=== PATIENT | male | born 1975 | race Caucasian/White ===

== ENCOUNTER 2021-02-04 06:24 | Inpatient (IN) | payer OTHER, MEDICAID ==
[~2021-02-04] VITALS: Ht 165.1 cm; Wt 81.0 kg
--- NOTE | 2021-02-04 06:47 | NUR ---
PT PRESENTS TO ED STATING EVERYTHING IS HURTING. EKG DONE IN TRIAGE, PT PLACED ON CONTINUOUS MONITORING. PT IN GOWN AND RESTING ON GURNEY.
[2021-02-04 07:33] LABS: MEAN CORPUSCULAR HEMOGLOBIN 31.8 pg (27.5-34.5); MEAN CORPUSCULAR HGB CONC 34.2 g/dL (33.2-36.2); MEAN PLATELET VOLUME 10.2 fL (7.4-10.4); PLATELET COUNT 123 x10^3/uL (130-400); RED BLOOD COUNT 5.96 x10^6/uL (4.38-5.82)
--- NOTE | 2021-02-04 07:35 | NUR ---
CODE BLUE BUTTON ACTIVATED BY [employer] WHO REPORTED THAT PT REPORTED BEING DIZZY AND THEN HAD SEIZURE LIKE ACTIVITY. PT PALE, COOL, DIAPHORETIC ON RN ARRIVAL, A&O X 4. PT STATES HE WAS DIZZY. PT SPO2 86% RA AND WAS PLACED ON O2. DR ESTRADA BEDSIDE TO ASSESS. PIV LEFT AC.
[2021-02-04 07:43] LABS: ALANINE AMINOTRANSFERASE 40 U/L (12-78); ALBUMIN 2.5 g/dL (3.4-5.0); ANION GAP 11 mmol/L (5-15); CALCIUM 8.5 mg/dL (8.5-10.1); CHLORIDE 95 mmol/L (98-107); CREATININE 1.24 mg/dL (0.7-1.3)
[2021-02-04 07:48] LABS: ALKALINE PHOSPHATASE 27 U/L (45-117); BILIRUBIN,TOTAL 0.5 mg/dL (0.2-1.0)
[2021-02-04 07:50] LABS: TROPONIN I 0.277 ng/mL (0.000-0.045)
[2021-02-04 07:59] LABS: BAND#(MANUAL) 0.73 x10^3/uL; BANDS%(MANUAL) 10 % (0-7); LYMPH#(MANUAL) 0.44 x10^3/uL (1-3.4); LYMPHS% (MANUAL) 6 % (22-44); MONOS#(MANUAL) 0.15 x10^3/uL (0.3-2.7); MONOS% (MANUAL) 2 % (2-9); SEG#(MANUAL) 5.99 x10^3/uL (1.8-6.8); SEGS% (MANUAL) 82 % (42-75)
[2021-02-04 08:00] LABS: <PLATELET ESTIMATE> DECREASED; <PLT MORPHOLOGY> NORMAL PLT MORPH; <RBC MORPHOLOGY> NORMAL
[2021-02-04] MEDS ORDERED: DOXYCYCLINE 100MG TABLET PO ONE (08:00)
[2021-02-04] MEDS ORDERED: SODIUM CHLORIDE 0.9% 1,000ML IVBOLUS ONE (08:00)
[2021-02-04] MEDS ORDERED: CEFTRIAXONE 1,000 MG in DEXTROSE 5% 50 ML IVPB ONE (08:00)
[2021-02-04] MEDS ORDERED: ASPIRIN 81 MG TABLET CHEW PO ONE (08:00)
[2021-02-04] MEDS ORDERED: SODIUM CHLORIDE FLUSH 10ML SYR IVF ONE (08:00)
[2021-02-04] MEDS ORDERED: MORPHINE SULFATE 4 MG/ML, 1ML ONE (08:24)
[2021-02-04] MEDS ORDERED: ONDANSETRON 2MG/ML, 2ML ONE (08:24)
[2021-02-04] MEDS ORDERED: ONDANSETRON 2MG/ML, 2ML IVPush ONE (08:30)
[2021-02-04] MEDS ORDERED: MORPHINE SULFATE 4 MG/ML, 1ML IVPush ONE (08:30)
[2021-02-04] MEDS ORDERED: ASPIRIN 81 MG TABLET CHEW ONE (08:38)
[2021-02-04] MEDS ORDERED: DOXYCYCLINE 100MG TABLET ONE (09:45)
[2021-02-04 10:02] LABS: D-DIMER (DIC) 0.53 ug/mlFEU (0.00-0.52); PROTIME 10.6 Seconds (9.6-11.5)
[2021-02-04] MEDS ORDERED: ACETAMINOPHEN 325 MG TABLET PO PRN (11:30)
[2021-02-04] MEDS ORDERED: ENALAPRILAT 1.25 MG/ML, 2ML IVPush PRN (11:30)
[2021-02-04] MEDS ORDERED: THIAMINE 100MG TABLET PO ONE (11:30)
[2021-02-04] MEDS ORDERED: GUAIFENESIN/DM 200-20MG, 10ML UDC PO PRN (11:30)
[2021-02-04] MEDS ORDERED: MELATONIN 5 MG TABLET PO PRN (11:30)
[2021-02-04] MEDS ORDERED: ONDANSETRON ODT 4 MG PO PRN (11:30)
[2021-02-04] MEDS ORDERED: CHOLECALCIFEROL 1,000 UNIT TABLET PO SCH (11:30)
[2021-02-04] MEDS ORDERED: HYDROcodone/APAP 5/325 TABLET PO PRN (11:30)
[2021-02-04] MEDS ORDERED: ONDANSETRON 2MG/ML, 2ML IVPush PRN (11:30)
[2021-02-04] MEDS ORDERED: ZINC SULFATE 220 MG CAPSULE PO SCH (11:30)
[2021-02-04] MEDS ORDERED: morphine SULFATE 10 MG/ML, 1ML IVPush PRN (11:30)
[2021-02-04] MEDS ORDERED: FAMOTIDINE 20 MG TABLET PO SCH (11:30)
[2021-02-04] MEDS ORDERED: THIAMINE 100MG TABLET ONE (11:46)
[2021-02-04] MEDS ORDERED: ENOXAPARIN 40 MG/0.4 ML ONE (11:46)
[2021-02-04] MEDS ORDERED: DEXAMETHASONE 4 MG/ML, 1ML ONE (11:47)
[2021-02-04] MEDS ORDERED: ZINC SULFATE 220 MG CAPSULE ONE (11:47)
[2021-02-04] MEDS ORDERED: FAMOTIDINE 20 MG TABLET ONE (11:47)
[2021-02-04] MEDS ORDERED: CHOLECALCIFEROL 1,000 UNIT TABLET ONE (11:47)
[2021-02-04] MEDS ORDERED: AZITHROMYCIN 500 MG in SODIUM CHLORIDE 0.9% 250 ML IV SCH (12:00)
[2021-02-04] MEDS ORDERED: ENOXAPARIN 40 MG/0.4 ML SQ SCH (12:30)
[2021-02-04] MEDS ORDERED: DEXAMETHASONE 4 MG/ML, 1ML IVPush SCH (12:30)
[2021-02-04 12:51] LABS: TROPONIN I 0.576 ng/mL (0.000-0.045)
--- NOTE | 2021-02-04 14:33 | NUR ---
TASK RN NOTE: CALL TO RT REGARDING CT SCAN AND PT'S OPTIFLOW. PER WERNER, RT PT CAN GO TO CT WITH NONREBREATHER MASK ON. CT AWARE.
[2021-02-04] MEDS ORDERED: OMNIPAQUE 350 MG/ML, 100ML BOTTLE ONE (15:26)
[2021-02-04 16:45] VITALS: BP 100/70
[2021-02-04] MEDS ORDERED: ASCORBIC ACID 500 MG TABLET PO SCH (17:00)
--- NOTE | 2021-02-04 17:25 | NUR ---
PT REPORT TO JASMIN AMIN
[2021-02-04] MEDS ORDERED: DEXAMETHASONE 4 MG/ML, 5ML IVPush ONE (18:30)
[2021-02-04] MEDS ORDERED: SODIUM CHLORIDE 0.9% 1,000 ML IV SCH (18:30)
[2021-02-04 19:28] LABS: MICROSCOPIC AUTO
[2021-02-04] MEDS ORDERED: REMDESIVIR 200 MG in SODIUM CHLORIDE 0.9% 250 ML IVPB ONE (19:30)
[2021-02-04] MEDS ORDERED: CALCIUM CHLORIDE 10%, 10ML SYR ONE (21:01)
[2021-02-04] MEDS ORDERED: DOPAMINE/D5W PMX 400 MG/250 ML ONE (21:01)
[2021-02-04] MEDS ORDERED: NOREPINEPHRINE 1 MG/ML, 4ML ONE (21:01)
[2021-02-04] MEDS ORDERED: EPINEPHRINE 1 MG/ML, 30ML ONE (21:01)
[2021-02-04] MEDS ORDERED: EPINEPHRINE SYRINGE 0.1 MG/ML, 10ML ONE ×2 (21:01→21:46)
[2021-02-04] MEDS ORDERED: SODIUM BICARB 8.4%, 50ML SYRINGE ONE ×2 (21:01→21:46)
[2021-02-04] MEDS ORDERED: MIDAZOLAM 1 MG/ML, 5ML ONE (21:46)
[2021-02-04] MEDS ORDERED: PROPOFOL 10 MG/ML, 100ML IV ONE (21:46)
[2021-02-04] MEDS ORDERED: ATROPINE SYRINGE 0.1 MG/ML, 10ML ONE (21:46)
[2021-02-04] MEDS ORDERED: ROCURONIUM 10MG/ML,5ML ONE (21:46)
[2021-02-05] MEDS ORDERED: CEFTRIAXONE 1,000 MG in DEXTROSE 5% 50 ML IVPB SCH (08:30)
[2021-02-05] MEDS ORDERED: REMDESIVIR 100 MG in SODIUM CHLORIDE 0.9% 250 ML IVPB SCH (19:30)
== END 2021-02-04 22:51 | DRG 871 ==
LOC: ED 09:04 → EDIP 10:21 → SUATTDRO 11:12 → 5SO 17:55 → CCU 18:49
PROVIDERS: ADMIT Internal Medicine; ATTEND Internal Medicine
PROC: XW033E5 Introduction of Remdesivir Anti-infective into Peripheral Vein, Percutaneous Approach, New Technology Group 5 (ICD-10-PCS; principal; 2021-02-04)
PROC: 5A12012 Performance of Cardiac Output, Single, Manual (ICD-10-PCS; 2021-02-04)
PROC: 0T9B70Z Drainage of Bladder with Drainage Device, Via Natural or Artificial Opening (ICD-10-PCS; 2021-02-04)
DX: A41.89 Other specified sepsis (principal); I21.A1 Myocardial infarction type 2; J12.82 Pneumonia due to coronavirus disease 2019; J96.01 Acute respiratory failure with hypoxia; U07.1 COVID-19
CPT/HCPCS: 71045; 71275; 80053; 81001; 82728; 82803; 82962; 83605; 83615; 83880; 84145; 84484; 85025; 85049; 85379; 85384; 85610; 85730; 86140; 87040; 87086; 92950; 93005; 96361; 96365; 96375; 99291; G0378; J0456; J0461; J0696; J1100; J1265; J1650; J2250; J2405; J2704; Q9967; U0005; J0171; J2270; J7030; J7050; U0003